=== PATIENT | female | born 1980 | race Caucasian/White ===

== ENCOUNTER 2025-08-12 15:04 | Emergency (ER) | payer MEDICAID ==
[~2025-08-12] VITALS: Ht 170.2 cm; Wt 86.0 kg
--- NOTE | 2025-08-12 15:32 | ELECTROCARDIOGRAPH REPORT ---
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 CULLEN Posey Measurements Intervals [place] Rate: 60 P: 57 MD: 163 QRS: 53 QRSD: 85 T: -10 QT: 410 QTc: 410 Interpretive Statements Sinus rhythm Ventricular premature complex Probable anterior infarct, age indeterminate Baseline wander in lead(s) I,aVR,aVL,V1,V2 Electronically Signed On 08-14-2025 9:36:[address] CULLEN Posey Please click the below link to view image of tracing.
[2025-08-12 16:06] LABS: LEUKOCYTE ESTERASE ,URINE TRACE (Neg); NITRITES, URINE NEGATIVE (Neg); OCCULT BLOOD,URINE NEGATIVE (Neg)
[2025-08-12 16:08] LABS: UA COLLECTION TYPE CLN CATCH MIDSTREAM
[2025-08-12 16:09] LABS: MUCUS STRANDS NONE SEEN /LPF (Neg); SQUAMOUS EPITHELIAL CELL,UR FEW /LPF (FEW)
[2025-08-12 16:17] LABS: URINE AMPHETAMINE SCREEN NEGATIVE (Neg); URINE BARBITUATE SCREEN NEGATIVE (Neg); URINE BENZODIAZEPINES SCREEN NEGATIVE (Neg); URINE CANNABINOID SCREEN POSITIVE (Neg); URINE COCAINE SCREEN NEGATIVE (Neg); URINE METHADONE SCREEN NEGATIVE (Neg); URINE OPIATE SCREEN NEGATIVE (Neg); URINE PHENCYCLIDINE SCREEN NEGATIVE (Neg)
[2025-08-12] MEDS: ketorolac trometh 30MG/ML vial 30 MG/ML VIAL IV ONE (16:34)
[2025-08-12] MEDS: normal saline 1000ml 1,000 ML IV ONE (16:40)
--- NOTE | 2025-08-12 16:51 | Physician Documentation ---
History of Present Illness ~ Chief Complaint: Head Pain Stated Complaint: PALPITATIONS/MIGRAINE Time Seen by MD: 15:21 OK to notify your PCP?: Yes Primary Medical Doctor: none Source: patient, RN/MD, EMS Mode of Arrival: EMS, Stretcher [facility] Patient is seen today brought in by ambulance with complaints of severe migraine for five days. Patient states in [place] she is usually treated with Dilaudid for her headaches and chronic neck pain in an IV. Patient initially refused the medication that was offered to her for treatment of her migraine and nausea which initially was Toradol and Compazine and Benadryl and normal saline. Patient did eventually receive that treatment. Patient denies any chest pain or shortness of breath or abdominal pain or diarrhea or changes in vision or hearing or suicidal ideation or homicidal ideation. Medication Reconciliation Allergies: Coded Allergies: [id number] Antimigraine Agents (Unverified Allergy, Unknown, 08/12/25) meperidine HCl (Unverified Allergy, Unknown, 08/12/25) Past Medical History Past Medical History: Arrhythmia, Hypertension Past Surgical History: appendectomy, cholecystectomy, , other Alcohol Use: None Drug Use: none Lives with: Spouse, Family Lives In: Home Occupation: unemployed Physical Exam Vital Signs: Temperature: 98.1, Heart Rate: 60, Respiratory Rate: 19, BP: 154/93, Pulse Oximetry: 99, Weight: 86.000 Oxygen Flow Rate: 0 Progress Results/Orders Results/Orders Orders - HO PADILLA PAC Cult Urine + [address] (08/12/25 16:09) Normal Saline 1000ml (0.9% Sodium Chlori (08/12/25 16:30) Completed Orders - HO PADILLA PAC Drug Screen, Urine (08/12/25 15:27) Ua W/Microscopic, Cult If Ind (08/12/25 15:46) Prochlorperazine Inj (Compazine Inj) (08/12/25 16:25) Diphenhydramine Inj (Benadryl Inj.) (08/12/25 16:25) Ketorolac Trometh 30mg/Ml Vial (Toradol (08/12/25 16:25) Medications Received in ER Medications (Trade) Dose Ordered Sig/Beau Route PRN Reason Start Time Stop Time Status Last Admin Dose Admin (Compazine inj) 10 mg ONCE ONCE IV 08/12/25 16:25 08/12/25 16:26 DC 08/12/25 16:35 10 MG (Benadryl inj.) 50 mg ONCE ONCE IV 08/12/25 16:25 08/12/25 16:26 DC 08/12/25 16:32 50 MG (Toradol inj. 30mg/ml) 30 mg ONCE ONCE IV 08/12/25 16:25 08/12/25 16:26 DC 08/12/25 16:34 30 MG Sodium Chloride 1,000 ml @ 1,000 mls/hr ONCE ONCE IV 08/12/25 16:30 08/12/25 17:29 08/12/25 16:40 1,000 MLS/HR Vital Signs 08/12/25 08/12/25 08/12/25 15:22 15:35 16:34 Temp 98.1 Pulse 60 Resp 19 18 19 B/P (MAP) 154/93 Pulse Ox 99 O2 Flow Rate 0 Laboratory Tests Test 08/12/25 15:46 Urine Specimen Description Cln catch midstream Urine Color Yellow Urine Clarity Clear Urine pH 7.0 Urine Specific [place] 1.010 Urine Protein Negative Urine Glucose (UA) Negative Urine Ketones Negative Urine Occult Blood Negative Urine Nitrite Negative Urine Bilirubin Negative Urine Urobilinogen 0.2 Urine Leukocyte Esterase Trace H Urine RBC None seen Urine WBC 0-4 Urine Squamous Epithelial Cells Few Urine Bacteria None seen Urine Mucus None seen Urine Culture Indicated Indicated Volume Urine Centrifuged 10 ml Urine Comment Urine Opiates Screen Negative Urine Methadone Screen Negative Urine Fentanyl Screen Negative Urine Barbiturates Screen Negative Urine Phencyclidine Screen Negative Urine Amphetamines Screen Negative Urine Benzodiazepines Screen Negative Urine Cocaine Screen Negative Urine Cannabinoids Screen Positive Drug Screen Comment EKG/XRAY/CT/US/VASC/MRI EKG : Additional Comment EKG interpreted by myself today shows regular rate at 60 beats per minute, normal sinus rhythm, no ST segment elevation or ischemic changes and no axis deviation. Medical Decision Making Additional information obtaine: N/A Findings Patient is seen today brought in by ambulance with complaints of severe migraine for five days. Patient states in [place] she is usually treated with Dilaudid for her headaches and chronic neck pain in an IV. Patient initially refused the medication that was offered to her for treatment of her migraine and nausea which initially was Toradol and Compazine and Benadryl and normal saline. Patient did eventually receive that treatment. Patient denies any chest pain or shortness of breath or abdominal pain or diarrhea or changes in vision or hearing or suicidal ideation or homicidal ideation. Patient did receive Toradol 30 mg IV, Compazine 10 mg IV, Benadryl 50 mg IV, normal saline IV. Patient will follow up with primary care in 2-5 days for re- evaluation if no better. Return to ED with any worsening, concerning or changing symptoms. Patient appears to be drug-seeking. She became very upset after told her that I do not usually treat a migrainous headache with IV Dilaudid or IV morphine. Differential Dx:Considerations: Include: PITTS-Cluster, PITTS-Migraine, PITTS- Hypertensive Departure Disposition: HOME / SELF CARE / HOMELESS Impression: Primary Impression: Migraine Qualified Codes: G43.909 - Migraine, unspecified, not intractable, without status migrainosus Additional Impression: Drug-seeking behavior Condition: Improved Discharge Instructions: Headache Additional Instructions: Patient did receive Toradol 30 mg IV, Compazine 10 mg IV, Benadryl 50 mg IV, normal saline IV. Patient will follow up with primary care in 2-5 days for re- evaluation if no better. Return to ED with any worsening, concerning or changing symptoms. Referrals: NO PRIMARY CARE PROVIDER (PCP) Signature Scribe Signature: No scribe Attestation: No scribe HO PADILLA Aug 12, 2025 16:51
[2025-08-12 17:02] VITALS: BP 120/89; PULSE 60; TEMP 98.1; O2SAT 99
[2025-08-12 17:14] VITALS: RESP 18
== END 2025-08-12 17:15 | disposition home or self-care (01) ==
LOC: ER 15:05
DX: G43.909 Migraine, unspecified, not intractable, without status migrainosus (principal); G89.29 Other chronic pain; I10 Essential (primary) hypertension; Z90.49 Acquired absence of other specified parts of digestive tract; Z76.5 Malingerer [conscious simulation]; Z88.8 Allergy status to other drugs, medicaments and biological substances; Z56.0 Unemployment, unspecified; Z79.899 Other long term (current) drug therapy
CPT/HCPCS: 80305; 81001; 87088; 93005; 96361; 96374; 96375; 99284; J0780; J1200; J1885; J7030